=== PATIENT | female | born 2000 | race Caucasian/White ===

== ENCOUNTER 2024-08-07 09:18 | Emergency (ER) | payer OTHER, SELFPAY ==
[2024-08-07 10:14] VITALS: BP 120/78; PULSE 60; RESP 16; TEMP 36.9
--- NOTE | 2024-08-07 10:36 | ED.SKABFB ---
HPI - Skin/Abscess/Foreign Bdy General Chief complaint: Skin/Abscess/Foreign Body Stated complaint: Rash Source: patient Mode of arrival: ambulatory Limitations: no limitations History of Present Illness HPI narrative: 24-year-old female presented for complaint of red itchy round lesion to left inner elbow. She states she likely bit by spider yesterday and has noticed an increase in redness. Denies pain or drainage to the site. Has not taken anything for symptoms. Related Data Home Medications Medication Instructions Recorded Confirmed levothyroxine 50 mcg tablet 50 mcg PO DAILY 08/07/24 08/07/24 Review of Systems Review of Systems: CONSTITUTIONAL: Denies body aches, fever, chills, or sweats. EYES: Denies visual changes, redness, or discharge. ENT: Denies rhinorrhea, congestion CARDIOVASCULAR: Denies chest pain, palpitations, or edema. RESPIRATORY: Denies cough or dyspnea. GASTROINTESTINAL: Denies abdominal pain, nausea, vomiting, or diarrhea. SKIN: Per HPI MUSCULOSKELETAL: Denies back pain, joint pain, or myalgia. NEUROLOGIC: Denies headache, numbness, tingling, or weakness. PMFSH Comments At time of signature, I have reviewed and agree with nursing past medical, surgical, social and family history unless otherwise noted. Please see nursing chart for further information. There is no relevant family history pertinent to the presenting complaint Exam Narrative: GENERAL: Well-appearing EYES: conjunctivae clear, and EOMI. ENT: Mucous membranes moist. Oropharynx without edema, erythema or lesions. NECK: Supple. No lymphadenopathy CHEST: Clear to auscultation. HEART: Regular rate and rhythm. SKIN: Warm, dry. Left AC area of erythema 1.5cm diameter with puncture at center, surrounding fish warden erythema of 7cm diameter. Nontender, no fluctuance, drainage or streaking. NEURO: Alert and oriented x3. Course Course Emergency Course: Patient is aware of diagnosis, understands and agrees to treatment plan. Anticipatory guidance given. Patient agrees to follow-up as directed and is aware of reasons to seek care at the emergency department. Portions of this record may have been created with voice recognition software Level of Care: Express Care Visit Vital Signs Vital signs: Vital Signs Temperature 98.4 F 08/07/24 10:14 Pulse Rate 60 08/07/24 10:14 Respiratory Rate 16 08/07/24 10:14 Blood Pressure 120/78 08/07/24 10:14 Temperature 98.4 F 08/07/24 10:14 Pulse Rate 60 08/07/24 10:14 Respiratory Rate 16 08/07/24 10:14 Blood Pressure 120/78 08/07/24 10:14 Reviewed MDM - Skin/Abscess/Foreign Bdy MDM Narrative Medical decision making narrative: Discussed physical exam findings, reviewed Rx. Pt will start using antihistamines and if no improvement in erythema and warmth she will start abx. Advised supportive measures and signs/symptoms to go to the ER. Pt is appropriate for outpt treatment and f/u. Differential Diagnosis Differential diagnosis: Likely abscess of skin or subcutaneous tissue, urticaria, herpes zoster, cellulitis, eczema, insect bites, impetigo and contact dermatitis Discharge Plan Discharge Clinical Impression: Insect bites Patient Disposition: Home, Self-Care Condition: Stable Instructions: Antibiotic Form, Cellulitis (ED), Insect Bite or Sting (ED) Additional Instructions: Keep the area clean and dry You can apply cream such as Benadryl, hydrocortisone, or calamine to the site. Benadryl or Zyrtec as needed for itching Cool compresses to the sites of itching, avoid hot water. Avoid scratching to reduce the risk of infection If symptoms worsen to include spreading, pain, warmth/fever, pus - start the antibiotic Follow up with your primary care provider as needed in 1 week Go to the ER for worsening symptoms or concerns Prescriptions: New cephalexin 500 mg capsule 500 mg PO Q8H 5 Days Qty: 15 0RF No Action levothyroxin
== END 2024-08-07 10:51 | disposition home or self-care (01) ==
PROVIDERS: Emergency Provider Nurse Practitioner Family
DX: S50.862A Insect bite (nonvenomous) of left forearm, initial encounter (principal); W57.XXXA Bitten or stung by nonvenomous insect and other nonvenomous arthropods, initial encounter
CPT/HCPCS: 99213; G0463